=== PATIENT | male | born 1945 | race Caucasian/White ===

== ENCOUNTER 2022-05-08 16:53 | Emergency (ER) | payer MEDICARE, OTHER, SELFPAY ==
[2022-05-08] VITALS (8 sets, daily range): BP systolic 118–143; BP diastolic 63–68; PULSE 63–79; RESP 20; TEMP 36.2; O2SAT 91–99; BMI 23.8
[2022-05-08 17:52] LABS: Add Manual Diff / Slide Review NO; Basophils Absolute Auto 0 /uL (0-100); Basophils Percent Auto 0.6 % (0-2); Eosinophils Absolute Auto 100 /uL (0-450); Eosinophils Percent Auto 1.5 % (2-4); Hematocrit 41.5 % (41-53); Hemoglobin 14.5 g/dL (13.5-17.5); Lymphocytes Absolute Auto 500 /uL (1100-4500); Lymphocytes Percent Auto 6.6 % (25-40); Mean Corpuscular HGB Conc 35.1 % (30-36); Monocytes Absolute Auto 500 /uL (0-900); Monocytes Percent Auto 7.2 % (3-14); Neutrophils Absolute Auto 6000 /uL (1500-7000); Neutrophils Percent Auto 84.1 % (50-75); Platelet Count 213 X10^3/uL (150-400); Red Blood Cell Count 4.27 X10^6/uL (4.5-5.9); Red Cell Distribution Width 13.1 % (11.6-14.8); White Blood Cell Count 7.1 X10^3/uL (4.5-11.0)
[2022-05-08 17:55] LABS: Alanine Aminotransferase 50 IU/L (<50); Albumin 4.5 g/dL (3.5-5.0); Albumin Globulin Ratio 1.6 (1.0-2.8); Alkaline Phosphatase 64 U/L (38-126); Aspartate Aminotransferase 42 IU/L (17-59); BUN Creatinine Ratio 13.7 (6-22); Bilirubin Total 2.4 mg/dL (0.2-1.3); Blood Urea Nitrogen 16 mg/dL (9-20); Calcium 9.2 mg/dL (8.4-10.2); Carbon Dioxide 25 mmol/L (22-32); Chloride 101 mmol/L (98-107); Estimated Glomerular Filt Rate > 60 mL/min (>60); Globulin 2.8 g/dL (1.7-4.1); Glucose 176 mg/dL (80-110); HEMOLYSIS 24 (0-50); Lipase 155 U/L (23-300); Potassium 4.1 mmol/L (3.4-5.1); Sodium 139 mmol/L (137-145); Total Protein 7.3 g/dL (6.3-8.2)
[2022-05-08 20:08] LABS: RBC Urine 30-100/HPF (0-5/HPF); WBC Urine None Seen (0-5/HPF)
[2022-05-08 20:09] LABS: Bacteria Urine None Seen; Culture Indicated Urine Cult Not Indicated
--- NOTE | 2022-05-08 21:08 | ED_ITS ---
HPI - Abdominal Pain General Chief Complaint: Abdominal Pain Stated Complaint: right side/appendix severe pain x1 day Time Seen by Provider: 05/08/22 21:07 Source: patient Mode of arrival: Family Vehicle Limitations: no limitations History of Present Illness HPI narrative: This is a 76-year-old male with history of diabetes, dyslipidemia, anxiety with complaint of right lower quadrant pain and flank pain that came on gradually over a 1/2 hour today. Patient states it has improved somewhat but is still present. He denies fevers or chills no nausea or vomiting. No chest pain or shortness of breath denies any changes or issues with bowel movements he has been stooling regularly denies black or bloody stools although states he was using a pit toilet so did not have good visualization. He denies dysuria, u rgency frequency or hematuria. Patient does note he is had a kidney stone in the past he does still have his appendix and he denies any prior surgeries. No known drug allergies. Denies tobacco, alcohol or illicit. He lives in [place] he is currently visiting the [facility] with friends and traveling on a sailboat. He Is on Provigil, bupropion, donepezil, metformin, oxybutynin, atorvastatin and vitamin D3. He states the donepezil was for precautionary measures but does not have significant memory issues. He denies any cardiac history. Related Data Previous Rx's Medication Instructions Recorded oxycodone 5 mg tablet 5 mg PO Q6H PRN pain #10 tabs 05/08/22 tamsulosin 0.4 mg capsule (Flomax) 0.4 mg PO DAILY #10 caps 05/08/22 Allergies Allergy/AdvReac Type Severity Reaction Status Date / Time No Known Drug Allergies Allergy Verified 05/08/22 17:21 Review of Systems Review of Systems ROS Unobtainable: All systems reviewed & are unremarkable except as noted in HPI and below Patient History Social History Smoking Status: Never smoker Smoking Status: Never smoker alcohol intake frequency: holidays/special occasions only Substance Use Type: does not use Exam Narrative Exam Narrative: GENERAL: Alert and oriented x three, elderly male in mild distress HEENT: Head normocephalic, atraumatic, EOMI, pupils reactive, face symmetric, moist mucous membranes NECK: Supple, full range of motion CARDIOVASCULAR: Regular rate and rhythm without murmurs, rubs or gallops. RESPIRATORY: Breath sounds equal bilaterally, no wheezes rales or rhonchi. ABDOMEN: Soft, nontender. Normoactive bowel sounds all 4 quadrants. No guarding or rebound, rigidity, no mass, no pulsatile mass or bruit : No CVA tenderness EXTREMITIES: Normal range of motion, no clubbing or edema. Neurovascularly intact NEUROLOGICAL: Cranial nerves II through XII grossly intact. Moving all extremities SKIN: Warm, dry, no petechiae, no rashes or lesions. Initial Vital Signs Initial Vital Signs: Vital Signs Temperature 97.1 F L 05/08/22 17:21 Pulse Rate 63 05/08/22 17:21 Respiratory Rate 20 05/08/22 17:21 Blood Pressure 143/68 H 05/08/22 17:21 Pulse Oximetry 99 05/08/22 17:21 Oxygen Delivery Method 05/08/22 17:21 Course Orders Ordered: Discontinued Medications Ketorolac Tromethamine (Ketorolac 30 Mg/Ml Vial) 15 mg IV NOW ONE Stop: 05/08/22 21:20 Last Admin: 05/08/22 21:33 Dose: 15 mg Documented By: FAVIOLA Oxycodone/Acetaminophen (Oxycodone/Apap 5/325 Prepack) 1 bottle MISC SEEINSTR ONE Stop: 05/08/22 22:21 Last Admin: 05/08/22 22:46 Dose: 1 bottle Documented By: FAVIOLA Tamsulosin HCl (Tamsulosin 0.4 Mg Capsule) 0.4 mg PO NOW ONE Stop: 05/08/22 22:21 Last Admin: 05/08/22 22:46 Dose: 0.4 mg Documented By: FAVIOLA Vital Signs Vital signs: Vital Signs - 8 hr 05/08/22 17:21 05/08/22 19:44 05/08/22 19:45 Temperature 97.1 F L Pulse Rate 63 72 67 Respiratory Rate 20 Blood Pressure 143/68 H Pulse Oximetry 99 99 99 Oxygen Delivery Method Room Air 05/08/22 19:45 05/08/22 20:00 05/08/22 20:30 Temperature Pulse Rate 79 77 Respiratory Rate Blood Pressure 133/65 Pulse Oximetry 97 96 Oxygen Delivery Method Room Air Room Air 05/08/22 21:00 05/08/22 21:32 05/08/22 21:34 Temperature Pulse Rate 68 74 71 Respiratory Rate Blood Pressure Pulse Oximetry 94 91 94 Oxygen Delivery Method Room Air Room Air Room Air 05/08/22 21:34 Temperature Pulse Rate Respiratory Rate Blood Pressure 118/63 Pulse Oximetry Oxygen Delivery Method MDM - Abdominal Pain Lab Data Result diagrams: 05/08/22 17:33 05/08/22 17:33 Labs: Lab Results 05/08/22 05/08/22 05/08/22 Range/Units 17:33 17:33 19:46 WBC 7.1 (4.5-11.0) X10^3/uL RBC 4.27 L (4.5-5.9) X10^6/uL Hgb 14.5 (13.5-17.5) g/dL Hct 41.5 (41-53) % MCV 97.0 (80-100) fL MCH 34.0 (26-34) PG MCHC 35.1 (30-36) % RDW 13.1 (11.6-14.8) % Plt Count 213 (150-400) X10^3/uL Neut % (Auto) 84.1 H (50-75) % Lymph % (Auto) 6.6 L (25-40) % [place] % (Auto) 7.2 (3-14) % Eos % (Auto) 1.5 L (2-4) % Baso % (Auto) 0.6 (0-2) % Neut # (Auto) 6000 (7196-9140) /uL Lymph # (Auto) 500 L (4805-6334) /uL [place] # (Auto) 500 (0-900) /uL Eos # (Auto) 100 (0-450) /uL Baso # (Auto) 0 (0-100) /uL Sodium 139 (137-145) mmol/L Potassium 4.1 (3.4-5.1) mmol/L Chloride 101 (98-107) mmol/L Carbon Dioxide 25 (22-32) mmol/L BUN 16 (9-20) mg/dL Creatinine 1.17 (0.66-1.25) mg/dL Estimated GFR > 60 (>60) mL/min BUN/Creatinine Ratio 13.7 (6-22) Glucose 176 H (80-110) mg/dL Calcium 9.2 (8.4-10.2) mg/dL Total Bilirubin 2.4 H (0.2-1.3) mg/dL AST 42 (17-59) IU/L ALT 50 H (<50) IU/L Alkaline Phosphatase 64 (38-126) U/L Total Protein 7.3 (6.3-8.2) g/dL Albumin 4.5 (3.5-5.0) g/dL Globulin 2.8 (1.7-4.1) g/dL Albumin/Globulin Ratio 1.6 (1.0-2.8) Lipase 155 (23-300) U/L Urine RBC 30-100/hpf H (0-5/HPF) Urine WBC None seen (0-5/HPF) Urine Bacteria None seen (None) Ur Culture Indicated? Cult not indicated Point of care testing: Urine Dip Bedside Urine Glucose Negative Bedside Urine Bilirubin - Negative Bedside Urine Ketone +++ 80 Bedside Urine Occult Blood ++ Bedside Urine Protein - Negative Bedside Urine Urobilinogen +/- 1mg Bedside Urine Nitrite - Negative Bedside Urine Leukocytes - Negative Esterase Imaging Data CT scan - abdomen/pelvis: Radiologist's Impression: Close Abdomen/Pelvis CT (Signed) Fazal Leahy - 05/08/22 [address]?[place] [address] CT Scan Report Signed Patient: Kirk De La Cruz MR#: [id number] : 1945 Acct:[id number] Age/Sex: 76 / M Date of Service: 05/08/22 Loc: ED Accession Number: [id number] ?? Procedure: CT kidney ureter bladder (KUB) Ordering Provider: Tash Hines D.O. PROCEDURE:? CT KIDNEY URETER BLADDER (KUB) ? INDICATIONS:? right abd pain, flank pain, hematuria ? TECHNIQUE:? Axial sections were acquired from the lung bases to the pubic symphysis.? Coronal and sagittal reformats were performed.? For radiation dose reduction, the following was used: ?automated exposure control, adjustment of mA and/or kV according to patient size.? ? COMPARISON:? None. ? FINDINGS:? Image quality:? Excellent.? ? Lung bases:? There is mild dependent atelectasis bilaterally. Heart:? Heart is normal in size. ? URINARY: Right Kidney and Ureter: ? There is an obstructing urinary stone within the mid right ureter measuring approximately 0.3 cm with mild right hydroureteronephrosis with perinephric and periureteral fat stranding.? A small 0.2 cm nonobstructing stone is also demonstrated within the right kidney. ? Left Kidney and Ureter: ? No stones or hydronephrosis.? There is nonspecific mild perinephric stranding.? No hydroureter. ? Bladder:? Normal wall thickness. No stones. ? ? ? ABDOMEN: Liver:? Noncontrast evaluation of the liver demonstrates no discrete? mass. Gallbladder:? There are dependent calcified gallstones within the gallbladder fundus.? No gallbladder wall thickening or pericholecystic fluid. Biliary ducts:? No biliary ductal dilatation.? ? Pancreas:? Unremarkable.? ? Spleen:? Normal in size.? ? Adrenal Glands:? No adrenal nodules.? ? ? Stomach and Bowel:? Stomach, small bowel loops, and colon are normal in caliber and wall thickness.? The appendix is normal in appearance and is demonstrated in the right upper quadrant.? Peritoneum:? No abnormal intraperitoneal fluid.? No free air.? ? Ventral Wall: ? No hernia.? Abdominal Nodes:? No retroperitoneal or mesenteric adenopathy by size criteria.? Vessels:? Aorta and inferior vena cava are normal in size.? ? PELVIS: Pelvic Organs:? There is moderate enlargement of the prostate.? Bilateral fi ducial markers are noted within the prostate. ? Pelvic Nodes: No enlarged lymph nodes.? Miscellaneous:? There is a small fat-containing right inguinal hernia. ? Bones:? Visualized osseous structures demonstrate no suspicious focal lesions. IMPRESSION:? ? 1.? Obstructing urinary stone in the mid right ureter with mild right hydroureteronephrosis. ? 2. Additional small nonobstructing right renal stone. ? 3. No evidence of appendicitis. ? 4. Cholelithiasis without CT evidence of cholecystitis.? Dictated by: Fazal Leahy M.D. on 05/08/2022 at 21:58 ? ? Approved by: Fazal Leahy M.D. on 05/08/2022 at 22:03?? ECG Data Attestation: I personally reviewed and interpreted this ECG as follows: Prior ECG tracings: not available for review Interpretation: Sinus rhythm rate of 66 FL 166 QRS 84 and QTC of 450. No acute ST changes appreciated. No priors for comparison MDM Narrative Medical decision making narrative: This is a 76-year-old right lower abdominal pain and slight flank pain that st arted in the last day, labs are overall reassuring except bilirubin is elevated but patient is nontender on exam not in the right lower quadrant or right upper quadrant. He notes his discomfort is mainly in the flank currently. He has some hematuria but no other signs of infection. Because he is traveling currently and will be not easily accessible to health care CT KUB was ordered. Dose of pain medication and patient is found to have a kidney stone in the right with some mild hydro. No evidence of appendicitis he does have cholelithiasis but no evidence of cholecystitis. Patient started on Flomax, medication for pain management and return precautions. Urine does not show any signs of infection Discharge Plan Departure Patient Disposition: Home Clinical Impression: Kidney stone on right side, Gallstones Instructions: DI for Kidney Stones Activity Restrictions/Additional Instructions: Follow-up with your physician for recheck. You have a kidney on your right side which appears to be the cause of your symptoms today. Incidentally you do have some gallstones and elevation in your bilirubin level I do not have any priors for comparison but you should follow-up with your ph ysician to have this rechecked. Take Flomax once daily until gone. You can take Tylenol up to a 1000 mg every 6 hours and/or ibuprofen up to 800 mg every 8 hours. If in adequate you can take narcotic pain medication 1-2 tablets every 6 hours as needed. Prescriptions were printed. Please return for fevers, rapidly worsening abdominal, back or flank pain, persistent vomiting, lightheadedness or passing out, difficulty with urination or other new or concerning symptoms. Prescriptions: New tamsulosin [Flomax] 0.4 mg capsule 0.4 mg PO DAILY Qty: 10 0RF oxycodone 5 mg tablet 5 mg PO Q6H PRN (Reason: pain) Qty: 10 0RF Visit Report Forms: Patient Portal/API
--- NOTE | 2022-05-08 21:18 | DI.CT.S_ITS ---
PROCEDURE: CT KIDNEY URETER BLADDER (KUB) INDICATIONS: right abd pain, flank pain, hematuria TECHNIQUE: Axial sections were acquired from the lung bases to the pubic symphysis. Coronal and sagittal reformats were performed. For radiation dose reduction, the following was used: automated exposure control, adjustment of mA and/or kV according to patient size. COMPARISON: None. FINDINGS: Image quality: Excellent. Lung bases: There is mild dependent atelectasis bilaterally. Heart: Heart is normal in size. URINARY: Right Kidney and Ureter: There is an obstructing urinary stone within the mid right ureter measuring approximately 0.3 cm with mild right hydroureteronephrosis with perinephric and periureteral fat stranding. A small 0.2 cm nonobstructing stone is also demonstrated within the right kidney. Left Kidney and Ureter: No stones or hydronephrosis. There is nonspecific mild perinephric stranding. No hydroureter. Bladder: Normal wall thickness. No stones. ABDOMEN: Liver: Noncontrast evaluation of the liver demonstrates no discrete mass. Gallbladder: There are dependent calcified gallstones within the gallbladder fundus. No gallbladder wall thickening or pericholecystic fluid. Biliary ducts: No biliary ductal dilatation. Pancreas: Unremarkable. Spleen: Normal in size. Adrenal Glands: No adrenal nodules. Stomach and Bowel: Stomach, small bowel loops, and colon are normal in caliber and wall thickness. The appendix is normal in appearance and is demonstrated in the right upper quadrant. Peritoneum: No abnormal intraperitoneal fluid. No free air. Ventral Wall: No hernia. Abdominal Nodes: No retroperitoneal or mesenteric adenopathy by size criteria. Vessels: Aorta and inferior vena cava are normal in size. PELVIS: Pelvic Organs: There is moderate enlargement of the prostate. Bilateral fiducial markers are noted within the prostate. Pelvic Nodes: No enlarged lymph nodes. Miscellaneous: There is a small fat-containing right inguinal hernia. Bones: Visualized osseous structures demonstrate no suspicious focal lesions. IMPRESSION: 1. Obstructing urinary stone in the mid right ureter with mild right hydroureteronephrosis. 2. Additional small nonobstructing right renal stone. 3. No evidence of appendicitis. 4. Cholelithiasis without CT evidence of cholecystitis. Dictated by: Fazal Leahy M.D. on 05/08/2022 at 21:58 Approved by: Fazal Leahy M.D. on 05/08/2022 at 22:03
[2022-05-08] MEDS: KETOROLAC 30 MG/ML VIAL 15 MG IV (21:33)
[2022-05-08] MEDS: TAMSULOSIN 0.4 MG CAPSULE PO (22:46)
[2022-05-08] MEDS: OXYCODONE/APAP 5/325 PREPACK 1 BOTTLE MISC (22:46)
== END 2022-05-08 22:45 | disposition home or self-care (01) ==
PROVIDERS: Emergency Medicine; Emergency Provider Emergency Medicine
DX: N20.0 Calculus of kidney (principal); K80.20 Calculus of gallbladder without cholecystitis without obstruction
CPT/HCPCS: 36415; 74176; 80053; 81003; 81015; 83690; 85025; 93005; 96374; 99284; J1885